=== PATIENT | male | born 1985 | race African-American/Black ===

== ENCOUNTER 2021-03-07 09:46 | Emergency (ER) | payer OTHER, SELFPAY ==
[2021-03-07 10:30] VITALS: BP 125/84; PULSE 77; RESP 14; TEMP 36.4; O2SAT 100; BMI 27.3
--- NOTE | 2021-03-07 11:08 | ED.ALLEREA ---
HPI - Allergic Reaction General Chief complaint: Allergic Reaction Stated complaint: allergic reaction Time Seen by Provider: 03/07/21 11:08 Source: patient Mode of arrival: ambulatory Limitations: no limitations History of Present Illness MD complaint: allergic reaction and hives Onset (ago): day(s) (3) Exposure: cleaning product exposure (tide new detergent) Symptoms: rash and itching Severity: moderate Treatment prior to arrival: topical medicine Previous Allergic Reaction History: none Related Data Previous Rx's Medication Instructions Recorded prednisone 20 mg tablet 40 mg PO DAILY 5 Days #10 tab 03/07/21 Allergies Allergy/AdvReac Type Severity Reaction Status Date / Time No Known Allergies Allergy Verified 03/07/21 11:13 Review of Systems Review of Systems: Constitutional : No Fever, No Chills ENT/Mouth : no oral swelling, No Hoarseness, No Swallowing Difficulty Eyes: No Eye Pain, No Swelling, No Redness Cardiovascular : No Chest Pain, No SOB Respiratory : No Cough, No Sputum, No Wheezing, No Smoke Exposure, No Dyspnea Gastrointestinal : No Nausea, No Vomiting, No Diarrhea, No abdominal Pain Genitourinary : No Dysuria, No Urinary Frequency, No Hematuria Musculoskeletal : No joint pain, No Myalgias, No Joint Swelling Skin : No Skin Lesions, positive rash Neuro : No Weakness, No Numbness, No Headache Psych : No Anxiety/Panic, No Depression PMFSH Past Medical History Medical History No known health problems Social History Social History Patient Tobacco Use Status: Tobacco use Unknown Advance Directives: No Advance Directives Information Provided: No Physical Exam Vital Signs: Vital Signs: Last Vital Signs Temp 97.6 F 03/07/21 10:30 Pulse 77 03/07/21 10:30 Resp 14 03/07/21 10:30 BP 125/84 03/07/21 10:30 Pulse Ox 100 03/07/21 10:30 BMI result Body Mass Index 27.3 Appearance: Alert. Oriented X3. No acute distress. Eyes: Pupils equal, round and reactive to light. ENT: Pharynx normal. Neck: Normal inspection. Neck supple. CVS: Normal heart rate and rhythm. Pulses normal. Respiratory: No respiratory distress. Breath sounds normal. Abdomen: Soft and non-tender. Skin: Skin warm and dry. Normal skin color. Normal skin turgor. Extremities: No lower extremity edema. No calf ttp Neuro: Oriented X 3. No motor deficit. No sensory deficit. MDM - Allergic Reaction MDM Narrative Medical decision making narrative: 35 yo male with no PMH here with hives no oral issues - diffuse rash consistent with hives no scabies risk factors - at this time will start on oral prednisone for rash - given precautions to return Discharge Plan Discharge Clinical Impression: Urticaria Patient Disposition: Home, Self-Care Instructions: Urticaria (ED) Additional Instructions: return to ED for any worsening symptoms or concerns Prescriptions: New prednisone 20 mg tablet 40 mg PO DAILY 5 Days Qty: 10 RF: 0 Stand Alone Forms: Work/School Release Interventions: ED Discharge Assessment Last Done: 03/07/21 11:35 Discharge Date/Time: 03/07/21 11:35
== END 2021-03-07 11:35 | disposition home or self-care (01) ==
PROVIDERS: Emergency Provider Emergency Medicine; PCP Internal Medicine
DX: T78.49XA Other allergy, initial encounter (principal); L50.9 Urticaria, unspecified; Y92.009 Unspecified place in unspecified non-institutional (private) residence as the place of occurrence of the external cause
CPT/HCPCS: 99283

== ENCOUNTER 2021-07-12 14:55 | Outpatient (RCR) | payer OTHER, SELFPAY ==
--- NOTE | 2021-07-12 16:54 | MHC.PT.EP ---
[facility] [place] Office [place] Office [place] Office [address] Maverick Rivera [address] [phone] F: [phone] F: [phone] F: [phone] F: [phone] Physical Therapy Plan of Care Date of Evaluation: Date of Surgery: n/a Diagnosis: Low back pain, unspecified Assessment: Pt is a 36yo M who presents to PT with acute on chronic LBP. He presents with current impairments in pain, increased lumbar lordosis, decreased core stabilization, decreased hip strength, soft tissue restrictions, impaired posture, and impaired body mechanics. He is limited functionally by prolonged sitting and bending. He is a good candidate for skilled PT in order to address current impairments to facilitate return to PLOF. He is recommended to be seen 2x/week for 4 weeks however pt reports he is able to attend ~1x/week for 4 weeks, therefore he will be seen 1x/week for 4 weeks and will be reassessed at that time. Frequency and Duration: The patient will be seen 1x/week for 4 weeks Short Term Goals: Pt will be I with HEP to promote self management of symptoms Pt will demonstrate improvements in postural awareness and body mechanics throughout the day Pt will improve B glute max strength by at least 1/2 grade Jail Goals: Pt will demonstrate full ROM throughout lumbar spine with minimal to no pain Pt will demonstrate ability to lift 15# object from floor with proper squatting mechanics Pt will tolerate sitting > 30 min with improved posture with minimal to no pain Treatment Plan: Modalities to reduce pain, spasms and effusion. Manual therapy to restore motion and function. Therapeutic exercise to improve strength and flexibility. Neuromuscular re-education for posture and balance. Therapeutic activities to return to functional activities of daily living. Electronically signed by: Apoorva Rogers, PT, DPT Please sign and return to therapist. Thank you for your referral.
--- NOTE | 2021-08-11 10:25 | MHC.PT.DC ---
[facility] [place] Office [place] Office [place] Office [address] Maverick Rivera [address] [phone] F: [phone] F: [phone] F: [phone] F: [phone] Physical Therapy Discharge Report Diagnosis: Low back pain, unspecified Date of Surgery: n/a Date of Evaluation: 07/12/21 Date of Discharge: 08/11/21 Treatments to Date: 1 Cancellations to Date: 1 No Shows to Date: 3 Discharge Status: Visit Non-compliance Discharge Summary: Pt attended initial PT evaluation on 07/12/21. Pt had 1 cancellation and 3 no-show appointments since initial PT evaluation. Pt is being D/C per [facility] attendance policy and visit non-compliance. Pt current level of function unknown at this time. Electronically signed by: Apoorva Rogers, PT, DPT Please sign and return to therapist. Thank you for your referral.
== END 2021-08-11 10:26 | disposition home or self-care (01) ==
LOC: HO.PT 14:55
PROVIDERS: PCP Internal Medicine; Visit Provider Internal Medicine
DX: M54.50 Low back pain, unspecified (principal)
CPT/HCPCS: 97110; 97161

== ENCOUNTER 2021-09-02 06:21 | Outpatient (REF) | payer OTHER, SELFPAY ==
[2021-09-02 07:40] LABS: Hematocrit 41.6 % (42.0-52.0); Hemoglobin 13.6 g/dl (14.0-18.0); Mean Corpuscular HGB Conc 32.7 g/dl (31.0-36.0); Mean Corpuscular Hemoglobin 27.9 pg (27.0-33.0); Mean Corpuscular Volume 85.4 fL (80.0-98.0); Mean Platelet Volume 10.3 fL (9.4-12.4); Platelet Count 193 X10*3/uL (160-400); Red Blood Count 4.87 X10*6/uL (4.60-5.80); Red Cell Distribution Width 12.6 % (11.0-16.0)
[2021-09-02 08:04] LABS: Atypical Lymph Absolute Manual 0.1 x10*3/uL; Atypical Lymphs Percent Manual 1 % (0-6); Band Neutrophils Percent 0 % (3-5); Basophils Abs Manual 0.1 X10*3/uL (0.0-0.2); Basophils Percent Manual 1 % (0-2); Eosinophils Absolute Manual 0.1 X10*3/uL (0.0-0.4); Eosinophils Percent Manual 2 % (0-4); Lymphocytes Absolute Manual 3.4 X10*3/uL (1.2-4.9); Lymphocytes Percent Manual 67 % (20-40); Monocytes Absolute Manual 0.3 X10*3/uL (0.1-1.2); Monocytes Percent Manual 5 % (2-11); Neutrophils Absolute Manual 1.2 X10*3/uL (2.0-8.3); Neutrophils Percent Manual 24 % (45-73)
[2021-09-02 08:06] LABS: Ovalocytes 1+ (5-14) /OIF; RBC Morphology NOTED
[2021-09-02 08:07] LABS: Burr Cells 1+ (0-2) /OIF; Hypochromasia 1+ (5-14) /OIF; Platelet Estimate NORMAL (NORMAL); Platelet Morphology Comment NORMAL; Smudge Cells PRESENT
[2021-09-02 08:16] LABS: Alanine Aminotransferase 29 U/L (0-40); Albumin Level 4.1 g/dL (3.5-5.0); Alkaline Phosphatase 75 U/L (39-117); Anion Gap 10 (12-20); Aspartate Amino Transferase 29 U/L (5-37); Blood Urea Nitrogen 15 mg/dL (9-16); Calcium 9.4 mg/dL (8.4-10.2); Carbon Dioxide 25 mmol/L (22-29); Chloride 107 mmol/L (96-108); Cholesterol 201 mg/dL; Estimated Glomerular Filt Rate 57; Glucose Fasting 84 mg/dL (60-99); HDL Cholesterol 54 mg/dL; LDL Cholesterol Calculated 140 mg/dl; Potassium 4.4 mmol/L (3.3-5.1); Sodium 138 mmol/L (135-145); Total Protein 7.4 g/dL (6.5-8.0); Triglycerides 35 mg/dL
[2021-09-02 08:27] LABS: Bilirubin Total 0.3 mg/dL (0.0-1.0)
== END 2021-09-02 06:22 | disposition home or self-care (01) ==
LOC: HO.LAB 06:21
PROVIDERS: PCP Internal Medicine; Visit Provider Internal Medicine
DX: Z00.00 Encounter for general adult medical examination without abnormal findings (principal); G43.B0 Ophthalmoplegic migraine, not intractable; E66.3 Overweight
CPT/HCPCS: 36415; 80053; 80061; 85007; 85025; 85027

== ENCOUNTER 2022-07-25 09:09 | Outpatient (REF) | payer OTHER, SELFPAY ==
[2022-07-25 09:19] LABS: MANUAL DIFF FLAG NO
[2022-07-25 10:22] LABS: Basophils Percent Auto 0.9 % (0-2); Eosinophils Absolute Auto 0.1 X10*3/uL (0.0-0.4); Eosinophils Percent Auto 1.7 % (0-4); Hematocrit 41.3 % (42.0-52.0); Hemoglobin 13.4 g/dl (14.0-18.0); Lymphocytes Percent Auto 56.8 % (20-40); Mean Corpuscular HGB Conc 32.4 g/dl (31.0-36.0); Mean Corpuscular Hemoglobin 27.9 pg (27.0-33.0); Mean Platelet Volume 10.2 fL (9.4-12.4); Monocytes Absolute Auto 0.3 X10*3/uL (0.1-1.2); Monocytes Percent Auto 8.4 % (2-11); Neutrophils Absolute Auto 1.1 x10*3/uL (2.0-8.3); Neutrophils Percent Auto 32.2 % (45-73); Platelet Count 173 X10*3/uL (160-400); Red Cell Distribution Width 12.3 % (11.0-16.0); White Blood Count 3.5 X10*3/uL (4.8-10.8)
[2022-07-25 10:52] LABS: Alanine Aminotransferase 14 U/L (0-40); Albumin Level 4.1 g/dL (3.5-5.0); Alkaline Phosphatase 90 U/L (39-117); Anion Gap 11 (12-20); Aspartate Amino Transferase 22 U/L (5-37); Bilirubin Total 0.6 mg/dL (0.0-1.0); Blood Urea Nitrogen 11 mg/dL (9-16); Calcium 9.5 mg/dL (8.4-10.2); Carbon Dioxide 24 mmol/L (22-29); Chloride 108 mmol/L (96-108); Cholesterol 198 mg/dL; Estimated Glomerular Filt Rate > 60; Glucose Fasting 73 mg/dL (60-99); HDL Cholesterol 53 mg/dL; Iron 92 mcg/dL (45-160); LDL Cholesterol Calculated 137 mg/dl; Percent Iron Saturation 36 % (15-50); Potassium 4.3 mmol/L (3.3-5.1); Sodium 139 mmol/L (135-145); Total Iron Binding Capacity 258 mcg/dL (228-428); Total Protein 7.3 g/dL (6.5-8.0); Triglycerides 41 mg/dL; Unsaturated Iron Binding 166 ug/dL
== END 2022-07-25 09:10 | disposition home or self-care (01) ==
LOC: HO.LAB 09:09
PROVIDERS: PCP Internal Medicine; Visit Provider Internal Medicine
DX: Z00.00 Encounter for general adult medical examination without abnormal findings (principal); E78.5 Hyperlipidemia, unspecified; D64.9 Anemia, unspecified
CPT/HCPCS: 36415; 80053; 80061; 83540; 85025

== ENCOUNTER → 2022-08-25 14:05 | Outpatient (BNVA) | payer OTHER, SELFPAY | PROVIDERS: PCP Internal Medicine; Visit Provider Internal Medicine ==

== ENCOUNTER 2022-10-19 13:32 | Outpatient (AMB) | payer OTHER, SELFPAY ==
[2022-10-19 13:37] VITALS: BP 110/70; PULSE 88; O2SAT 98; BMI 25.2
--- NOTE | 2022-10-19 13:37 | MHC.PC.OV ---
Vital Signs 10/19/22 13:37 Height 6 ft Weight 186 lb 2 oz BMI 25.2 BP 110/70 Blood Pressure Location Lt brachial Position Sitting Pulse 88 Pulse Source Pulse Oximeter Pulse Oximetry (%) 98 Oxygen Delivery Method Room Air Intake Visit Reasons: stomach concerns/weight loss Intake Note: Pt is here for had 4 episode of diarrhea on Sunday. Pt took Pepto bismol and it worked. 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 Accompanied by: Self / Same As Patient Allergies No Known Allergies Allergy (Verified 10/19/22 14:37) Medication List - Last Reconciled 10/19/22 by Tatiana Prajapati MD multivitamin 1 tab PO DAILY Tobacco use date assessed: 07/18/22 Dental Screening Dental Screen Date: 10/19/22 Did you have a dental visit in the last 12 months?: Yes Did you have a dental problem in the last 6 months where you did not have access to dental care?: No Was dental information given to patient?: Patient has dentist HPI HPI Comments History of Present Illness Details This is a 37-year-old male that comes complaining of acute diarrhea that started this week. Had 3 episodes Sunday after eating a medium rare for her which resolved with Pepto-Bismol. Restarted with diarrhea today and took Imodium. No fever, nausea, vomiting or abdominal pain. No recent traveling. No recent use of any antibiotics. He lives alone in his house. One of his coworkers report diarrhea also. No eating raw oysters. [facility] Medical History RIGOBERTO (generalized anxiety disorder) Lumbar pain Ophthalmoplegic migraine Overweight (BMI 25.0-29.9) Physical exam Surgical History No pertinent past surgical history Family History Mother No problems noted. Father No problems noted. Social History Household Members: None Housing: Apartment Alcohol intake: never Patient Tobacco Use Status: Never used Tobacco e-Cigarette/Vaping Use: Never Used Second Hand Smoke Exposure: No service: No Current occupational status: employed Current occupational exposures/hazards: No Cognitive needs: No Hearing needs: No Vision needs: Yes Questionnaire Thrive Questionnaire Date Thrive assessed: 07/18/22 RIGOBERTO-7 AMB Questionnaire RIGOBERTO-7 Date RIGOBERTO - 7 assessed: 07/18/22 Source: Developed by Drs. Thomas Hyde, Elvira Brown, Chato Zhang and colleagues, with an educational teresa from [employer]. Review of Systems Const All systems reviewed & are unremarkable except as noted in HPI and below Eyes Reports no additional complaints, Denies change in vision and Denies other visual disturbances Card Denies chest pain at rest, Denies chest pain with activity, Denies edema, Denies irregular heart rhythm, Denies claudication, Denies dyspnea, Denies dyspnea on exertion, Denies orthopnea, Denies paroxysmal nocturnal dyspnea and Denies slow heart rate Resp Denies cough, Denies dyspnea and Denies dyspnea on exertion GI Denies abdominal pain, Denies change in bowel habits, Denies excessive flatus, Reports diarrhea, Denies nausea and Denies vomiting Denies urinary hesitancy, Denies urinary incontinence and Denies urinary urgency Musc Denies abnormal gait, Denies atrophy, Denies deformity and Denies limited range of motion Skin/Breast Denies bleeding lesions, Denies changing lesions and Denies rash Neuro Denies abnormal gait and Denies lack of coordination Physical exam (Primary Care) Vital Signs: Last Vital Signs Pulse 88 10/19/22 13:37 BP 110/70 10/19/22 13:37 Pulse Ox 98 10/19/22 13:37 Oxygen Delivery Method Room Air 10/19/22 13:37 BMI result Body Mass Index 25.2 Tobacco/Smoking Status: Tobacco use Status Tobacco use date assessed 07/18/22 10/19/22 13:53 Patient Tobacco Use Status Never used Tobacco 10/19/22 13:53 Tobacco use type 07/18/22 15:03 e-Cigarette/Vaping Use Never Used 10/19/22 13:53 Thrive Assessment: Date of Thrive Assessment Date Thrive assessed 07/18/22 10/19/22 13:53 Eyes General: appearance normal, both eyes and all related structures Eyelids: Yes eyelids normal Conjunctivae: conjunctivae normal Neck Neck: Yes normal visual inspection and Yes supple Resp Effort & Inspection: normal respiratory effort Auscultation: clear to auscultation bilaterally Cardio Jugular venous distension: no JVD Rate: regular rate Rhythm: regular rhythm Heart sounds: S1 normal heart sound present and S2 normal heart sound present Extrem General: Yes full ROM Assessment and Plan Assessment & Plan (1) Acute diarrhea: Code(s): R19.7 - Diarrhea, unspecified Plan: Stool samples order Orders: Orders Leukocytes Stool Qualitative Today R19.7 - Diarrhea, unspecified Coding Level of Care Code Est Pt Level 3 (90082) Diagnoses Acute diarrhea R19.7 Time Spent (min) 17
== END 2022-10-19 14:01 | disposition home or self-care (01) ==
PROVIDERS: PCP Internal Medicine; Visit Provider Internal Medicine
DX: R19.7 Diarrhea, unspecified (principal)
CPT/HCPCS: 99213

== ENCOUNTER 2022-10-20 14:26 | Outpatient (AMB) | payer OTHER, SELFPAY ==
--- NOTE | 2022-10-20 14:55 | MHC.OFFWIV ---
Intake Vital Signs 10/20/22 14:56 Height 6 ft Weight 188 lb 6 oz BMI 25.5 BP 112/62 Blood Pressure Location Rt brachial Position Sitting Pulse 86 Pulse Source Pulse Oximeter Temp 97.5 F Temp Source Temporal Artery Scan Pulse Oximetry (%) 99 Oxygen Delivery Method Room Air Intake Visit Reasons: EP Constipation after having Diarrhea for few days Intake Note: Pt is here c/o feeling constipated for the last 4 days. Patient Tobacco Use Status: Never used Tobacco Allergies No Known Allergies Allergy (Verified 10/20/22 15:26) Do you need a note to return to daycare/school/sports/work: No HPI EP Constipation after having Diarrhea for few days HPI Details 37-year-old male presents to the office for a sick visit. Patient is reporting symptoms of constipation for a day. Earlier this week, he started having diarrhea. It woke him up from sleep. He had 3-5 episodes of diarrhea. Patient took Pepto-Bismol and took Imodium 48 hours later. Subsequently he has not had any more bowel movements. Patient feels a little bloated. No nausea or vomiting. No fevers or chills. His appetite is normal. [facility] Medical History RIGOBERTO (generalized anxiety disorder) Lumbar pain Ophthalmoplegic migraine Overweight (BMI 25.0-29.9) Physical exam Surgical History No pertinent past surgical history Family History Mother No problems noted. Father No problems noted. Social History Household Members: None Housing: Apartment Alcohol intake: never Patient Tobacco Use Status: Never used Tobacco e-Cigarette/Vaping Use: Never Used Second Hand Smoke Exposure: No service: No Current occupational status: employed Current occupational exposures/hazards: No Cognitive needs: No Hearing needs: No Vision needs: Yes Physical Exam Vital Signs: Last Vital Signs Temp 97.5 F 10/20/22 14:56 Pulse 86 10/20/22 14:56 BP 112/62 10/20/22 14:56 Pulse Ox 99 10/20/22 14:56 Oxygen Delivery Method Room Air 10/20/22 14:56 BMI result Body Mass Index 25.5 Const General: cooperative and healthy appearing Nutritional Appearance: well nourished Orientation/consciousness: patient oriented x3 Limitations: no limitations HEENT Head: Yes normal to inspection Eyes General: appearance normal, both eyes and all related structures Neck Neck: Yes normal visual inspection Chest Chest palpation & inspection: normal palpation of entire chest wall Resp Effort & Inspection: normal respiratory effort Neuro General: patient oriented x3 Assessment & Plan Assessment & Plan (1) Constipation: Code(s): K59.00 - Constipation, unspecified Plan: Omeprazole was given for symptomatic relief. Patient was advised to take no more Imodium or Pepto-Bismol. Coding Level of Care Code Est Pt Level 3 (37445) Diagnoses Constipation K59.00
[2022-10-20 14:56] VITALS: BP 112/62; PULSE 86; TEMP 36.4; O2SAT 99; BMI 25.5
== END 2022-10-20 16:02 | disposition home or self-care (01) ==
PROVIDERS: PCP Internal Medicine; Visit Provider Internal Medicine
DX: K59.00 Constipation, unspecified (principal)
CPT/HCPCS: 99213

== ENCOUNTER 2022-10-21 11:49 | Outpatient (REF) | payer OTHER, SELFPAY ==
[2022-10-21 13:30] LABS: Leukocytes Stool Qualitative FEW: < 2/OIF (NEGATIVE)
== END 2022-10-21 11:50 | disposition home or self-care (01) ==
LOC: HO.LNP 11:49
PROVIDERS: Visit Provider Internal Medicine
DX: R19.7 Diarrhea, unspecified (principal)
CPT/HCPCS: 89055

== ENCOUNTER 2023-06-14 09:07 | Outpatient (AMB) | payer OTHER, SELFPAY ==
--- NOTE | 2023-06-14 09:47 | AM.OFFWIN_ITS ---
Intake Vital Signs 06/14/23 09:48 Height 6 ft Weight 203 lb BMI 27.5 BP 120/80 Blood Pressure Location Lt brachial Position Sitting Pulse 80 Pulse Source Pulse Oximeter Temp 97.5 F Temp Source Temporal Artery Scan Pulse Oximetry (%) 98 Oxygen Delivery Method Room Air Intake Visit Reasons: EP Cut on LT hand Intake Note: pt is here today for cut on lf hand started 06/07 Patient Tobacco Use Status: Never used Tobacco Allergies No Known Allergies Allergy (Verified 06/14/23 09:58) Do you need a note to return to daycare/school/sports/work: Yes HPI HPI Comments History of Present Illness Details 38 y/o male patient who presents to walk in clinic with c/o left arm cut. [place] He cut himself while using a knife to open a bottle. Last Tdap 2009. [facility] Medical History RIGOBERTO (generalized anxiety disorder) Lumbar pain Ophthalmoplegic migraine Overweight (BMI 25.0-29.9) Physical exam Surgical History No pertinent past surgical history Family History Mother No problems noted. Father No problems noted. Social History Household Members: None Housing: Apartment Alcohol intake: never Patient Tobacco Use Status: Never used Tobacco e-Cigarette/Vaping Use: Never Used Second Hand Smoke Exposure: No service: No Current occupational status: employed Current occupational exposures/hazards: No Cognitive needs: No Hearing needs: No Vision needs: Yes Review of Systems Const All systems reviewed & are unremarkable except as noted in HPI and below Physical Exam Vital Signs: Last Vital Signs Temp 97.5 F 06/14/23 09:48 Pulse 80 06/14/23 09:48 BP 120/80 06/14/23 09:48 Pulse Ox 98 06/14/23 09:48 Oxygen Delivery Method Room Air 06/14/23 09:48 BMI result Body Mass Index 27.5 Const General: comfortable and no acute distress Orientation/consciousness: patient oriented x3 Skin Trauma: laceration (left palm laceration ~ 2 inch, starting to heal) Neuro General: patient oriented x3, gait normal and moves all extremities Extrem Left upper extremity: hand Details: normal ROM of fingers, no swelling and laceration (left palm) Psych Speech and movement: Normal speech and movement present Assessment & Plan Assessment & Plan (1) Laceration of hand: Code(s): S61.419A - Laceration without foreign body of unspecified hand, initial encounter Qualifiers: Encounter type: initial encounter Foreign body presence: without foreign body Laterality: left Qualified Code(s): S61.412A - Laceration without foreign body of left hand, initial encounter Plan - Cleaned wound - Applied Dermbond glue - Due for Tdap, gave today. Orders: Orders TDaP Immunization Today Z23 - Encounter for immunization Medications: New Boostrix Tdap (diphth,pertus(acell),tetanus) 0.5 mL IM ONCE 0.5 mL 0RF NS Z23 - Encounter for immunization Coding Level of Care Code Est Pt Level 3 (82778) Diagnoses Laceration of left hand without foreign body, initial encounter S61.412A Encounter type: initial encounter Foreign body presence: without foreign body Laterality: left Time Spent (min) 15
[2023-06-14 09:48] VITALS: BP 120/80; PULSE 80; TEMP 36.4; O2SAT 98; BMI 27.5
== END 2023-06-14 11:06 | disposition home or self-care (01) ==
PROVIDERS: PCP Internal Medicine; Visit Provider Nurse Practitioner Family
DX: S61.412A Laceration without foreign body of left hand, initial encounter (principal); Z23 Encounter for immunization
CPT/HCPCS: 90471; 90715; 99213

== ENCOUNTER 2023-07-24 14:28 | Outpatient (AMB) | payer OTHER, SELFPAY ==
--- NOTE | 2023-07-24 14:33 | MHC.PC.OV ---
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 Accompanied by: Self / Same As Patient Allergies No Known Allergies Allergy (Verified 07/24/23 14:43) Medication List - Last Reconciled 07/24/23 by Tatiana Prajapati MD No Known Home Meds Tobacco use date assessed: 07/24/23 Dental Screening Dental Screen Date: 07/24/23 Did you have a dental visit in the last 12 months?: Yes Did you have a dental problem in the last 6 months where you did not have access to dental care?: No Was dental information given to patient?: Patient has dentist HPI HPI Comments History of Present Illness Details This is a 38-year-old male that comes for his physical exam. Denies any chest pain or shortness of breath. No family history of colon cancer. No acute complaints. [facility] Medical History Physical exam RIGOBERTO (generalized anxiety disorder) Ophthalmoplegic migraine Lumbar pain Overweight (BMI 25.0-29.9) Surgical History No pertinent past surgical history Family History Mother No problems noted. Father No problems noted. Social History Household Members: None Housing: Apartment Alcohol intake: never Patient Tobacco Use Status: Never used Tobacco e-Cigarette/Vaping Use: Never Used Second Hand Smoke Exposure: No service: No Current occupational status: employed Current occupational exposures/hazards: No Cognitive needs: No Hearing needs: No Vision needs: Yes Questionnaire PHQ-9 Over the last 2 weeks, how often have you been bothered by any of the following problems? 1. Little interest or pleasure in doing things: not at all 2. Feeling down, depressed, or hopeless: not at all 3. Trouble falling or staying asleep, or sleeping too much: not at all 4. Feeling tired or having little energy: not at all 5. Poor appetite or overeating: not at all 6. Feeling bad about yourself - or that you are a failure or have let yourself or your family down: not at all 7. Trouble concentrating on things, such as reading the newspaper or watching television: not at all 8. Moving or speaking so slowly that other people could have noticed. Or the opposite - being so fidgety or restless that you have been moving around a lot more than usual: not at all 9. Thoughts that you would be better off or of hurting yourself in some way: not at all Total score: 0 Depression Screening Interpretation: Negative Depression Screening Done: Yes 06483 - PHQ-9 Billing: Yes Source: Developed by Drs. Thomas Hyde, Elvira Brown, Chato Zhang and colleagues, with an educational teresa from [employer]. Thrive Questionnaire Date Thrive assessed: 07/24/23 I am a: Patient What is your living situation today?: I have a steady place to live Within the past 12 months, did the food you bought not last and you didn't have the money to get more?: Never true Within the past 12 months, did you worry whether your food would run out before you got money to buy more?: Never true Do you have trouble paying for medicines?: No Do you have trouble getting transportation to medical appointments?: No Do you have trouble paying your heating and electricity bill?: No Do you have trouble taking care of your child, family member or friend?: No Do you have trouble with day-to-day activities such as bathing, preparing meals, shopping, managing finances, etc.?: No Are you currently unemployed and looking for a job?: No Are you interested in more education?: No Please select the resources that you would like help with: None Currently or been in a relationship where the following occur: no concerns reported THRIVE Score: 0 AUDIT C Alcohol Use Questionnaire (AUDIT-C) 1. How often do you have a drink containing alcohol?: Never Total Score: 0 RIGOBERTO-7 AMB Questionnaire RIGOBERTO-7 Date RIGOBERTO - 7 assessed: 07/24/23 Feeling nervous, anxious, or on edge: 0 = Not at all Not being able to stop or control worryin = Not at all Worrying too much about different things: 0 = Not at all Trouble relaxin = Not at all Being so restless that it is hard to sit still: 0 = Not at all Becoming easily annoyed or irritable: 0 = Not at all Feeling afraid as if something awful might happen: 0 = Not at all Total RIGOBERTO-7 score (0-4 normal; 5-9 mild; 10-14 moderate; 15-21 severe): 0 Source: Developed by Drs. Thomas Hyde, Elvira Brown, Chato Zhang and colleagues, with an educational teresa from [employer]. RIGOBERTO-7 Assessment Billing RIGOBERTO-7 Assessment Tool: RIGOBERTO-7 Assessment 94183 Review of Systems Const All systems reviewed & are unremarkable except as noted in HPI and below Eyes Reports no additional complaints, Denies change in vision and Denies other visual disturbances Card Denies chest pain at rest, Denies chest pain with activity, Denies edema, Denies irregular heart rhythm, Denies claudication, Denies dyspnea, Denies dyspnea on exertion, Denies orthopnea, Denies paroxysmal nocturnal dyspnea and Denies slow heart rate Resp Denies cough, Denies dyspnea and Denies dyspnea on exertion Physical exam (Primary Care) Vital Signs: Last Vital Signs BP 120/72 07/24/23 14:34 BMI result Body Mass Index 26.5 Tobacco/Smoking Status: Tobacco use Status Tobacco use date assessed 07/24/23 07/24/23 14:39 Patient Tobacco Use Status Never used Tobacco 07/24/23 14:39 Tobacco use type 06/14/23 09:05 e-Cigarette/Vaping Use Never Used 07/24/23 14:39 PHQ-9: PHQ-9 Score PHQ-9: Total score 0 07/24/23 14:39 Depression Screening Interpretation: Negative Thrive Assessment: Date of Thrive Assessment Date Thrive assessed 07/24/23 07/24/23 14:39 Currently or been in a relationship where the following occur: no concerns reported Const Orientation/consciousness: patient oriented x3 HENMT Head: Yes normal to inspection, Yes normocephalic and Yes atraumatic Ears: external ears normal Eyes General: appearance normal, both eyes and all related structures Eyelids: Yes eyelids normal Conjunctivae: conjunctivae normal Neck Neck: Yes normal visual inspection and Yes supple Resp Effort & Inspection: normal respiratory effort Auscultation: clear to auscultation bilaterally Cardio Jugular venous distension: no JVD Rate: regular rate Rhythm: regular rhythm Heart sounds: S1 normal heart sound present and S2 normal heart sound present GI Inspection: Yes normal to inspection Palpation (GI): Soft to palpation and nontender Auscultation: normal bowel sounds Skin General skin exam: no rashes or lesions noted Neuro General: patient oriented x3 and no focal motor deficits Extrem General: Yes full ROM Psych Appearance: grossly normal Assessment and Plan Assessment & Plan (1) Physical exam: Code(s): Z00.00 - Encounter for general adult medical examination without abnormal findings Plan: Repeat in a year. Coding Level of Care Code Est Pt Prev Care 40-64y(70271) Diagnoses Physical exam Z00.00 Additional Codes RIGOBERTO-7 Assessment Billing - RIGOBERTO-7 Assessment Tool: RIGOBERTO-7 Assessment 21881 ([id number]) Time Spent (min) 31
[2023-07-24 14:34] VITALS: BP 120/72; BMI 26.5
== END 2023-07-24 14:55 | disposition home or self-care (01) ==
PROVIDERS: Visit Provider Internal Medicine
DX: Z00.00 Encounter for general adult medical examination without abnormal findings (principal)
CPT/HCPCS: 99396

== ENCOUNTER 2024-02-22 10:34 | Outpatient (AMB) | payer OTHER, SELFPAY ==
--- NOTE | 2024-02-22 11:06 | MHC.OFFWIV ---
Intake Vital Signs 02/22/24 11:07 Height 6 ft Weight 193 lb BMI 26.2 BP 138/90 H Blood Pressure Location Rt brachial Position Sitting Pulse 86 Pulse Source Pulse Oximeter Pulse Oximetry (%) 98 Oxygen Delivery Method Room Air Intake Visit Reasons: EP RT eye concerns Intake Note: Patient here for right eye redness, he states he was in bed a couple of days ago and something fell in it and was burning so he flushed it and got better but then it started to turn red and feels like it is drooping . Patient Tobacco Use Status: Never used Tobacco Allergies No Known Allergies Allergy (Verified 02/22/24 11:10) Do you need a note to return to daycare/school/sports/work: No HPI HPI Comments History of Present Illness Details History of Present Illness The patient is a 38-year-old male presenting with right eye redness and discomfort. The issue began six days ago when something fell into his eye. Initially, the patient experienced a burning sensation that subsided temporarily after washing the eye with water, but the redness and discomfort persisted. The patient describes a sensation of drooping upon visual observation and pain upon touching the eye. While the pain and pressure were more prominent in the preceding days, these symptoms have somewhat alleviated today, although touch remains painful. He denies wearing contact lenses and uses glasses, seeing an vascular surgery physician only for eyewear prescriptions. Physical Exam General: Cooperative, healthy appearing, comfortable, no acute distress and well developed Orientation: Patient oriented x3 Limitations: No limitations Head: Normal to inspection Ears: Hearing grossly normal bilaterally Nose: Normal external nose present Face and sinus: Normal facial exam Eyes: Normal alignment and position Right eye, No foreign objects detected. 2 corneal abrasions at 2 oclock and 11 oclock, injection on lateral asepct of right eye. Left eye appears normal, normal EOM bilaterally Neck: Normal visual inspection and Yes full ROM Respiratory: Normal respiratory effort and able to speak in complete sentences. Skin: No rashes or lesions noted Neuro: Patient oriented x3 Extremities: Normal to inspection [facility] Medical History Physical exam RIGOBERTO (generalized anxiety disorder) Ophthalmoplegic migraine Lumbar pain Overweight (BMI 25.0-29.9) Surgical History No pertinent past surgical history Family History Mother No problems noted. Father No problems noted. Social History Household Members: None Housing: Apartment Alcohol intake: never Patient Tobacco Use Status: Never used Tobacco e-Cigarette/Vaping Use: Never Used Second Hand Smoke Exposure: No service: No Current occupational status: employed Current occupational exposures/hazards: No Cognitive needs: No Hearing needs: No Vision needs: Yes Review of Systems Const All systems reviewed & are unremarkable except as noted in HPI and below Physical Exam Vital Signs: Last Vital Signs Pulse 86 02/22/24 11:07 BP 138/90 H 02/22/24 11:07 Pulse Ox 98 02/22/24 11:07 Oxygen Delivery Method Room Air 02/22/24 11:07 BMI result Body Mass Index 26.2 Office Procedures Fluorescein eye exam Details: Applied 2 drops of tetracaine, then fluorescein dye and observed under blue light 2 large corneal abrasions Assessment & Plan Assessment & Plan (1) Corneal abrasion, right: Code(s): S05.01XA - Injury of conjunctiva and corneal abrasion without foreign body, right eye, initial encounter Qualifiers: Encounter type: initial encounter Qualified Code(s): S05.01XA - Injury of conjunctiva and corneal abrasion without foreign body, right eye, initial encounter Plan: Plan - Patient diagnosed with 2 corneal abrasions confirmed via fluorescein staining. - Prescribed antibiotic ointment to be applied to the right eye four times daily for seven days. - Advised the patient that the redness will subside as the irritation decreases with treatment. - Counseled the patient that if symptoms persist, follow-up with an vascular surgery physician will be necessary. Gave him contact info for Dr Sweeney. - Prescription sent to [facility] on [address] on [address] for immediate commencement of treatment. The patient acknowledges a recent need to follow up with an vascular surgery physician if symptoms do not resolve. No foreign objects were seen in the eye during the current examination. Patient was informed and verbally consented to the use of an ambient scribe for clinic note documentation during this visit. Medications: New erythromycin Apply to right eye 4 times a day while awake 0.5 inches ophthalmic-Right QID 3.5 grams 0RF Coding Level of Care Code Est Pt Level 3 (40524) Diagnoses Abrasion of right cornea, initial encounter S05.01XA Encounter type: initial encounter
[2024-02-22 11:07] VITALS: BP 138/90; PULSE 86; O2SAT 98; BMI 26.2
== END 2024-02-22 11:38 | disposition home or self-care (01) ==
PROVIDERS: PCP Internal Medicine; Visit Provider Physician Assistant
DX: S05.01XA Injury of conjunctiva and corneal abrasion without foreign body, right eye, initial encounter (principal)

== ENCOUNTER 2024-11-05 12:34 | Outpatient (AMB) | payer OTHER, SELFPAY ==
[2024-11-05 12:40] VITALS: BP 116/70; PULSE 74; O2SAT 98; BMI 27.3
--- NOTE | 2024-11-05 12:40 | A.OFFPC_ITS ---
Vital Signs 11/05/24 12:40 Height 6 ft Weight 201 lb 6 oz BMI 27.3 BP 116/70 Blood Pressure Location Lt brachial Position Sitting Pulse 74 Pulse Oximetry (%) 98 Intake Visit Reasons: annual exam Enamel Drier Required: No Accompanied by: Self / Same As Patient Allergies No Known Allergies Allergy (Verified 11/05/24 12:50) Medication List - Last Reconciled 11/05/24 by Tatiana Prajapait MD No Known Home Meds Tobacco use date assessed: 11/05/24 Dental Screening Dental Screen Date: 11/05/24 Did you have a dental visit in the last 12 months?: Yes Did you have a dental problem in the last 6 months where you did not have access to dental care?: No Was dental information given to patient?: Patient has dentist HPI HPI Comments History of Present Illness Details This is a 39-year-old male that comes for his physical exam. Tdap vaccine done last year. No acute complaints. [facility] Medical History Physical exam RIGOBERTO (generalized anxiety disorder) Ophthalmoplegic migraine Lumbar pain Overweight (BMI 25.0-29.9) Surgical History No pertinent past surgical history Family History Mother No problems noted. Father No problems noted. Social History (Updated 11/05/24 @ 12:57 by Tatiana Prajapati MD) Household Members: None Housing: Apartment Alcohol intake: current Alcohol intake frequency: holidays/special occasions only Alcohol type: wine and other Patient Tobacco Use Status: Never used Tobacco e-Cigarette/Vaping Use: Never Used Second Hand Smoke Exposure: No service: No Current occupational status: employed Current occupational exposures/hazards: No Cognitive needs: No Hearing needs: No Vision needs: Yes Questionnaire PHQ-9 Over the last 2 weeks, how often have you been bothered by any of the following problems? 1. Little interest or pleasure in doing things: not at all 2. Feeling down, depressed, or hopeless: not at all 3. Trouble falling or staying asleep, or sleeping too much: not at all 4. Feeling tired or having little energy: not at all 5. Poor appetite or overeating: not at all 6. Feeling bad about yourself - or that you are a failure or have let yourself or your family down: not at all 7. Trouble concentrating on things, such as reading the newspaper or watching television: not at all 8. Moving or speaking so slowly that other people could have noticed. Or the opposite - being so fidgety or restless that you have been moving around a lot more than usual: not at all 9. Thoughts that you would be better off or of hurting yourself in some way: not at all Total score: 0 Depression Screening Interpretation: Negative Depression Screening Done: Yes 25167 - PHQ-9 Billing: Yes Source: Developed by Drs. Thomas Hyde, Elvira Brown, Chato Zhang and colleagues, with an educational teresa from [employer]. Thrive Questionnaire Date Thrive assessed: 07/24/23 I am a: Patient What is your living situation today?: I have a steady place to live Within the past 12 months, did the food you bought not last and you didn't have the money to get more?: Never true Within the past 12 months, did you worry whether your food would run out before you got money to buy more?: Never true Do you have trouble paying for medicines?: No Do you have trouble getting transportation to medical appointments?: No Do you have trouble paying your heating and electricity bill?: No Do you have trouble taking care of your child, family member or friend?: No Do you have trouble with day-to-day activities such as bathing, preparing meals, shopping, managing finances, etc.?: No Are you currently unemployed and looking for a job?: No Are you interested in more education?: No Please select the resources that you would like help with: None THRIVE Score: 0 AUDIT C Alcohol Use Questionnaire (AUDIT-C) 1. How often do you have a drink containing alcohol?: Never Total Score: 0 Score Reviewed/Action Taken: No RIGOBERTO-7 AMB Questionnaire RIGOBERTO-7 Date RIGOBERTO - 7 assessed: 07/24/23 Feeling nervous, anxious, or on edge: 0 = Not at all Not being able to stop or control worryin = Not at all Worrying too much about different things: 0 = Not at all Trouble relaxin = Not at all Being so restless that it is hard to sit still: 0 = Not at all Becoming easily annoyed or irritable: 0 = Not at all Feeling afraid as if something awful might happen: 0 = Not at all Total RIGOBERTO-7 score (0-4 normal; 5-9 mild; 10-14 moderate; 15-21 severe): 0 Source: Developed by Drs. Thomas Hyde, Elvira Brown, Chato Zhang and colleagues, with an educational teresa from [employer]. RIGOBERTO-7 Assessment Billing RIGOBETRO-7 Assessment Tool: RIGOBERTO-7 Assessment 23362 Review of Systems Const All systems reviewed & are unremarkable except as noted in HPI and below Card Denies chest pain at rest, Denies chest pain with activity, Denies edema, Denies irregular heart rhythm, Denies claudication, Denies dyspnea, Denies dyspnea on exertion, Denies orthopnea, Denies paroxysmal nocturnal dyspnea and Denies slow heart rate Resp Denies cough, Denies dyspnea and Denies dyspnea on exertion GI Denies abdominal pain, Denies change in bowel habits, Denies excessive flatus, Denies nausea and Denies vomiting Physical exam (Primary Care) Vital Signs: Last Vital Signs Pulse 74 11/05/24 12:40 BP 116/70 11/05/24 12:40 Pulse Ox 98 11/05/24 12:40 BMI result Body Mass Index 27.3 Tobacco/Smoking Status: Tobacco use Status Tobacco use date assessed 11/05/24 11/05/24 12:44 Patient Tobacco Use Status Never used Tobacco 11/05/24 12:57 Tobacco use type 06/14/23 09:05 e-Cigarette/Vaping Use Never Used 11/05/24 12:57 PHQ-9: PHQ-9 Score PHQ-9: Total score 0 11/05/24 12:53 Depression Screening Interpretation: Negative Thrive Assessment: Date of Thrive Assessment Date Thrive assessed 07/24/23 11/05/24 12:44 HENMT Head: Yes normal to inspection, Yes normocephalic and Yes atraumatic Ears: external ears normal Eyes General: appearance normal, both eyes and all related structures Eyelids: Yes eyelids normal Conjunctivae: conjunctivae normal Neck Neck: Yes normal visual inspection and Yes supple Resp Effort & Inspection: normal respiratory effort Auscultation: clear to auscultation bilaterally Cardio Jugular venous distension: no JVD Rate: regular rate Rhythm: regular rhythm Heart sounds: S1 normal heart sound present and S2 normal heart sound present GI Inspection: Yes normal to inspection Palpation (GI): Soft to palpation and nontender Auscultation: normal bowel sounds Skin General skin exam: no rashes or lesions noted Neuro General: no focal motor deficits Extrem General: Yes full ROM Psych Appearance: grossly normal Coding Level of Care Code Est Pt Prev Care 40-64y(91518) Diagnoses Physical exam Z00.00 Additional Codes RIGOBERTO-7 Assessment Billing - RIGOBERTO-7 Assessment Tool: RIGOBERTO-7 Assessment 53900 ([id number]) PHQ-9 - 11236 - PHQ-9 Billing: Yes ([id number]) Time Spent (min) 30 Assessment & Plan Assessment & Plan (1) Physical exam: Code(s): Z00.00 - Encounter for general adult medical examination without abnormal findings Category: Medical Plan Repeat in a year.
--- OUTSIDE RECORDS SUMMARY | 2024-11-05 15:00 | XMS_ITS | Clinical Summary ---
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 Name Role Phone Unavailable Primary Care Provider Unavailabl e Social History Tobacco Use Types Packs/Day Years Used Date Smoking Tobacco: Never Assessed Sex and Gender Information Value Date Recorded Sex Assigned at Not on file Legal Sex Male 3:40 PM EDT Gender Identity Not on file Sexual Orientation Not on file Plan of Treatment Health Maintenance Due Date Last Done Comments Hepatitis C Virus Screening 1983 HIV Screening 06/07/1996 DTaP/Tdap/Td Vaccines (1 - Tdap) 06/07/2002 Hepatitis B Vaccines (1 of 3 - 19+ 3-dose series) 06/07/2002 HPV Vaccines (1 - 3-dose SCD M series) 06/07/2010 COVID-19 Vaccine (2023-2 5 season) 2023 Pneumococcal Vaccine: Pediat pranay (0-5 Years) and At-Risk Patients (6 to 49 Years) Aged Out No longer eligible b ased on patient's age to complete this topic
== END 2024-11-05 13:07 | disposition home or self-care (01) ==
LOC: HO.HMCH 12:34
PROVIDERS: PCP Internal Medicine; Visit Provider Internal Medicine
DX: Z00.00 Encounter for general adult medical examination without abnormal findings (principal)

== ENCOUNTER → 2024-11-05 12:34 | Outpatient (BNVA) | payer OTHER, SELFPAY | PROVIDERS: PCP Internal Medicine; Visit Provider Internal Medicine | DX: Z00.00 Encounter for general adult medical examination without abnormal findings (principal) | CPT/HCPCS: 96127 ==